=== PATIENT | male | born 1975 | race Caucasian/White ===

== ENCOUNTER 2019-09-18 12:25 | Emergency (ER) | payer OTHER ==
[2019-09-18 12:55] VITALS: BP 130/90; PULSE 96; TEMP 98.8; BMI 27.3
--- NOTE | 2019-09-18 13:14 | PDOC ---
History of Present Illness - General Chief Complaint: Syncope/Near Syncope Stated Complaint: SHORTNESS OF BREATH Time Seen by Provider: 09/18/19 13:13 History Source: Patient - History of Present Illness Initial Comments: 09/18/19 13:33 43M w/hx HTN p/w one hour of upper back pain. He reports wiping a counter and mopping the floors at home when he began to have pain in his mid upper back. He reports kneeling to the floor during the episode due to the pain. He denies any lightheadedness, vertigo, weakness, shortness of breath, chest pain, confusion. He reports taking acetaminophen otc before presenting to the ED which has alleviated his pain. He reports the current pain is 2/10, no radiation, non- exertional, described as an ache. He has not had any prior similar episodes. Past History - Past Medical History Allergies/Adverse Reactions: Allergies Allergy/AdvReac Type Severity Reaction Status Date / Time No Known Allergies Allergy Verified 09/18/19 12:45 - Psycho Social/Smoking Cessation Hx Smoking History: Never smoked Have you smoked in the past 12 months: No Hx Alcohol Use: Yes Drug/Substance Use Hx: No Review of Systems - Review of Systems Able to Perform ROS?: Yes Comments:: 09/18/19 13:53 GENERAL/CONSTITUTIONAL: No fever or chills. No weakness. HEAD, EYES, EARS, NOSE AND THROAT: No change in vision. No ear pain or discharge. No sore throat. CARDIOVASCULAR: No chest pain or shortness of breath RESPIRATORY: No cough, wheezing, or hemoptysis. GASTROINTESTINAL: No nausea, vomiting, diarrhea or constipation. GENITOURINARY: No dysuria, frequency, or change in urination. MUSCULOSKELETAL: No joint or muscle swelling or pain. No neck or back pain. SKIN: No rash NEUROLOGIC: No headache, vertigo, loss of consciousness, or change in strength/sensation. ENDOCRINE: No increased thirst. No abnormal weight change HEMATOLOGIC/LYMPHATIC: No anemia, easy bleeding, or history of blood clots. ALLERGIC/IMMUNOLOGIC: No hives or skin allergy. *Physical Exam - Vital Signs Last Vital Signs Temp Pulse Resp BP Pulse Ox 98.8 F 96 H 20 130/90 100 09/18/19 12:46 09/18/19 12:46 09/18/19 12:46 09/18/19 12:46 09/18/19 12:46 - Physical Exam 09/18/19 13:53 GENERAL: Awake, alert, and fully oriented, in no acute distress HEAD: No signs of trauma, normocephalic, atraumatic EYES: PERRLA, EOMI, sclera anicteric, conjunctiva clear ENT: Auricles normal inspection, hearing grossly normal, nares patent, oropharynx clear without exudates. Moist mucosa NECK: Normal ROM, supple, no lymphadenopathy, JVD, or masses LUNGS: No distress, speaks full sentences, clear to auscultation bilaterally HEART: Regular rate and rhythm, normal S1 and S2, no murmurs, rubs or gallops, peripheral pulses normal and equal bilaterally. ABDOMEN: Soft, nontender, normoactive bowel sounds. No guarding, no rebound. No masses EXTREMITIES : Normal inspection, Normal range of motion, no edema. No clubbing or cyanosis NEUROLOGICAL: Cranial nerves II through XII grossly intact. Normal speech, normal gait, no focal sensorimotor deficits SKIN: Warm, Dry, normal turgor, no rashes or lesions noted ED Treatment Course - LABORATORY CBC & Chemistry Diagram: 09/18/19 13:50 09/18/19 13:50 Medical Decision Making - Medical Decision Making 09/18/19 13:55 43M w/hx HTN p/w acute onset upper back pain, improving s/p acetaminophen. Ddx includes muscle spasm, electrolyte derangement, ACS. Plan: CBC CMP Troponin CXR EKG Dispo: Discharge 09/18/19 14:38 CBC - wnl CMP - wnl Troponin - pending EKG - NSR, no axis deviation, RRR, QRS 92, QTc 430 CXR - no mediastinal enlargement, no consolidations, fractures, or other acute processes visualized 09/18/19 15:03 Troponin - negative Plan for discharge with close PCP follow up. Discharge - Discharge Information Problems reviewed: Yes Clinical Impression/Diagnosis: Muscle spasm Condition: Stable Disposition: HOME - Admission No - Follow up/Referral Referrals: ON STAFF,NOT [Primary Care Provider] - - Patient Discharge Instructions Patient Printed Discharge Instructions: DI for Muscle Spasm Additional Instructions: Usted fue evaluado en la phil de urgencias por dolor de espalda. Sada niveles de saul estaban normales, y sada jaida X estaban normales tambien. Por favor ve a ferro doctor de cabezera lo mas pronto posible, en 5-7 lo. Regresa a la phil de urgencias si empiezas a tener dolor de pecho, debilidad, dificultad en respirar. Es posible que ferro dolor es muscular - por favor phylicia acetaminopheno o ibuprofen para controlar a sada sintomas. Print Language: ENGLISH - Post Discharge Activity
[2019-09-18] MEDS ORDERED: ACETAMINOPHEN 325 MG TABLET (FP) PO ONE (13:29)
[2019-09-18] MEDS ORDERED: LACTATED RINGERS SOLUTION 1000 ML INFUS.BAG IV ONE (13:34)
[2019-09-18] MEDS ORDERED: ACETAMINOPHEN 325 MG TABLET (FP) ONE (13:48)
--- NOTE | 2019-09-18 13:54 | PDOC ---
Attending Attestation - Resident Resident Name: YaelWin - ED Attending Attestation I have performed the following: I have examined & evaluated the patient, The case was reviewed & discussed with the resident, I agree w/resident's findings & plan, Exceptions are as noted - HPI HPI: 09/18/19 13:48 43yo male with hx of htn with midback pain while cleaning this am. Pt states he was wiping counters and moping the floor when he developed acute back pain, took tylenol and pain has resolved. No midline ttp. No falls. States the pain made him kneel to 1 knee, no cp. No radiation. No weakness. No paresthesias/weakness to arms/legs. Pt denies nix. No other complaints. - Physicial Exam PE: 09/18/19 13:54 Gen: aaox3, nad heart: +s1s2 reg lungs: cta b.l back: no c/t/l spine ttp, no stepoffs or deformities, no paraspinal ttp ext: no c/c/e, muscle strength 5/5 UE and LE, ambulates with a steady gait - Medical Decision Making 09/18/19 13:55 a/p: 43yo male with back pain which has since resolved -pain while cleaning -no cp -will send labs, ekg, cxr -currently pain free -will monitor and reassess 09/18/19 15:02 labs reviewed, trop neg cxr clear 09/18/19 15:03 pt stable for dc to home Heart Score/ECG Review - ECG Intrepretation Comment:: 09/18/19 13:56 sinus at 87, nl axis, nl interval, no acute st/t wave findings
[2019-09-18 14:16] LABS: BASO % 0.6 % (0-2.0); HEMATOCRIT 44.6 % (35.4-49); HEMOGLOBIN 14.8 GM/dL (11.7-16.9); LYMPH % 44.6 % (8-40); MCH 28.4 pg (25.7-33.7); MCHC 33.3 g/dl (32.0-35.9); MEAN CELL VOLUME 85.4 fl (80-96); MONO % 6.2 % (3.8-10.2); NEUT % 45.6 % (42.8-82.8); PLATELET COUNT 293 K/MM3 (134-434); RBC 5.22 M/mm3 (4.00-5.60); RDW 14.7 % (11.9-15.9); WHITE BLOOD COUNT 8.2 K/mm3 (4.0-10.0)
[2019-09-18 14:35] LABS: ALBUMIN 4.1 g/dl (3.4-5.0); BILIRUBIN,TOTAL 0.4 mg/dL (0.2-1); BLOOD UREA NITROGEN 10.9 mg/dL (7-18); CALCIUM 8.9 mg/dL (8.5-10.1); POTASSIUM 4.3 mmol/L (3.5-5.1); TOT PROT 8.2 g/dl (6.4-8.2)
--- NOTE | 2019-09-19 09:52 | EKG ---
Test Reason : Blood Pressure : / mmHG Vent. Rate : 087 BPM Atrial Rate : 087 BPM P-R Int : 168 ms QRS Dur : 092 ms QT Int : 358 ms P-R-T Axes : 079 005 079 degrees QTc Int : 430 ms NORMAL SINUS RHYTHM NONSPECIFIC T WAVE ABNORMALITY ABNORMAL ECG NO PREVIOUS ECGS AVAILABLE Confirmed by Delio Morales MD ([id number]) on 09/19/2019 9:51:58 AM Referred By: Confirmed By:Delio Morales MD
== END 2019-09-18 15:00 | disposition home or self-care (01) ==
LOC: JER 12:25
DX: M62.830 Muscle spasm of back (principal); I10 Essential (primary) hypertension
CPT/HCPCS: 36415; 71046-TC-FY; 80053; 84484; 85025; 93005; 93010; 99285-25

== ENCOUNTER 2021-04-26 12:20 | Emergency (ER) | payer OTHER ==
[2021-04-26 12:40] VITALS: BP 139/82; PULSE 82; TEMP 98.1; BMI 25.8
[2021-04-26] MEDS ORDERED: IBUPROFEN 600 MG TABLET (FP) PO ONE ×2 (13:38→13:51)
[2021-04-26] MEDS ORDERED: LIDOCAINE 5% TOPICAL PATCH TP ONE (13:38)
[2021-04-26] MEDS ORDERED: LIDOCAINE 5% TOPICAL PATCH ONE (13:51)
[2021-04-26] MEDS ORDERED: LIDOCAINE PATCH REMOVAL MC SCH (22:00)
== END 2021-04-26 14:10 | disposition home or self-care (01) ==
LOC: FER 12:20
DX: M54.50 Low back pain, unspecified (principal)
CPT/HCPCS: 99283-25

== ENCOUNTER 2024-07-22 23:18 | Day surgery (SDC) | payer OTHER ==
[2024-07-23 00:31] LABS: BASO % 0.3 % (0-2.0); EOS % 0.3 % (0-4.5); HEMATOCRIT 44.1 % (35.4-49); HEMOGLOBIN 14.6 GM/dL (11.7-16.9); LYMPH % 15.8 % (8-40); MCH 27.7 pg (25.7-33.7); MCHC 33.2 g/dl (32.0-35.9); MEAN CELL VOLUME 83.5 fl (80-96); MEAN PLT VOLUME 8.7 fl (7.5-11.1); MONO % 5.5 % (3.8-10.2); NEUT % 78.1 % (42.8-82.8); PLATELET COUNT 277 10^3/uL (134-434); RBC 5.28 M/mm3 (4.00-5.60); RDW 14.7 % (11.9-15.9); WHITE BLOOD COUNT 16.1 K/mm3 (4.0-10.0)
[2024-07-23 00:49] LABS: POTASSIUM 4.3 mmol/L (3.5-5.1)
[2024-07-23 00:52] LABS: ALBUMIN 4.3 g/dl (3.4-5.0); BLOOD UREA NITROGEN 17.7 mg/dL (7-18); CALCIUM 9.3 mg/dL (8.5-10.1)
[2024-07-23 00:55] LABS: CREATININE 1.3 mg/dL (0.55-1.3)
[2024-07-23 00:57] LABS: BILIRUBIN,TOTAL 0.6 mg/dL (0.2-1); TOT PROT 8.3 g/dl (6.4-8.2)
[2024-07-23] MEDS ORDERED: FAMOTIDINE 20 MG/50 ML IVPB 20 MG/50 ML MG IVPB ONE (02:25)
[2024-07-23] MEDS ORDERED: MAG HYDROX/AL HYDROX/SIMETH 30 ML UNIT-DOSE CUP ONE (02:25)
[2024-07-23] MEDS ORDERED: ACETAMINOPHEN INJECTION 100 ML ONE (02:25)
[2024-07-23] MEDS: FAMOTIDINE 20 MG/50 ML IVPB 20 MG/50 ML MG IVPB ONE (02:30)
[2024-07-23] MEDS: MAG HYDROX/AL HYDROX/SIMETH -MYLANTA- ORAL SUSPENSION PO ONE (02:30)
[2024-07-23] MEDS: ACETAMINOPHEN 1000 MG/100 ML BAG IVPB ONE (02:40)
[2024-07-23] MEDS: CEFTRIAXONE 1,000 MG in DEXTROSE 5%-WATER - 50 ML IVPB ONE (03:19)
[2024-07-23 05:12] LABS: BASO % 0.4 % (0-2.0); HEMATOCRIT 44.9 % (35.4-49); HEMOGLOBIN 14.6 GM/dL (11.7-16.9); LYMPH % 17.8 % (8-40); MCH 27.3 pg (25.7-33.7); MCHC 32.5 g/dl (32.0-35.9); MEAN PLT VOLUME 8.5 fl (7.5-11.1); MONO % 6.5 % (3.8-10.2); NEUT % 75.3 % (42.8-82.8); PLATELET COUNT 272 10^3/uL (134-434); RBC 5.35 M/mm3 (4.00-5.60); RDW 14.3 % (11.9-15.9); WHITE BLOOD COUNT 15.6 K/mm3 (4.0-10.0)
[2024-07-23] MEDS ORDERED: ACETAMINOPHEN 1000 MG/100 ML BAG IVPB PRN ×2 (05:24→12:43)
[2024-07-23] MEDS ORDERED: CEFTRIAXONE 1 G/50 ML PREMIX 50 ML IVPB ONE (05:28)
[2024-07-23] MEDS: CEFTRIAXONE 1 G/50 ML PREMIX 50 ML IVPB SCH (05:38)
[2024-07-23 05:51] LABS: URINE APPEARANCE CLEAR; URINE COLOR YELLOW; URINE GLUCOSE (UA) NEGATIVE (NEGATIVE)
[2024-07-23 05:52] LABS: PH,URINE 5.5 (5.0-8.0); URINE BILIRUBIN NEGATIVE (NEGATIVE); URINE KETONE NEGATIVE (NEGATIVE); URINE LEUK ESTERASE NEGATIVE (NEGATIVE); URINE NITRITE NEGATIVE (NEGATIVE); URINE PROTEIN NEGATIVE (NEGATIVE); URINE UROBILINOGEN 0.2 mg/dL (0.2-1.0)
[2024-07-23] MEDS: SODIUM CHLORIDE 1,000 ML IV SCH (05:53)
[2024-07-23 06:06] LABS: POTASSIUM 4.2 mmol/L (3.5-5.1)
[2024-07-23 06:08] LABS: ALBUMIN 4.1 g/dl (3.4-5.0); CALCIUM 9.4 mg/dL (8.5-10.1)
[2024-07-23 06:09] LABS: BLOOD UREA NITROGEN 15.9 mg/dL (7-18)
[2024-07-23 06:12] LABS: CREATININE 1.2 mg/dL (0.55-1.3); PHOSPHOROUS 2.4 mg/dL (2.5-4.9)
[2024-07-23 06:13] LABS: BILIRUBIN,TOTAL 0.6 mg/dL (0.2-1); TOT PROT 8.2 g/dl (6.4-8.2)
[2024-07-23 08:31] LABS: INR 1.04 (0.83-1.09); PROTHROMBIN TIME (PATIENT) 11.7 SEC (9.7-13.0)
[2024-07-23] MEDS ORDERED: BUPIVACAINE HCL/PF 0.5% (5MG/ML) 10 ML VIAL ONE (10:39)
[2024-07-23] MEDS ORDERED: PROPOFOL 20 ML ONE (10:55)
[2024-07-23] MEDS ORDERED: LIDOCAINE HCL/PF 2% SDV 5ML VIAL ONE (10:55)
[2024-07-23] MEDS ORDERED: ROCURONIUM BROMIDE 50 MG/5 ML SYRINGE ONE (10:55)
[2024-07-23] MEDS ORDERED: oxyCODONE HCL 5 MG TABLET PO PRN ×2 (11:12→12:43)
[2024-07-23] MEDS ORDERED: ONDANSETRON 4 MG/2 ML VIAL IVPUSH PRN ×2 (11:12→12:43)
[2024-07-23] MEDS ORDERED: MIDAZOLAM HCL 2 MG/2 ML SINGLE DOSE VIAL ONE (11:43)
[2024-07-23] MEDS: BUPIVACAINE HCL/PF 0.5% (5 MG/ML) 30 ML VIAL IJ ONE ×3 (12:00→12:03)
[2024-07-23] MEDS ORDERED: SUGAMMADEX SODIUM 200 MG/2 ML VIAL ONE ×2 (12:16→12:23)
[2024-07-23] MEDS ORDERED: SODIUM CHLORIDE 1,000 ML IV SCH (12:43)
[2024-07-23 18:52] VITALS: BMI 27.9
[2024-07-24 09:49] LABS: HEMATOCRIT 39.9 % (35.4-49); HEMOGLOBIN 13.2 GM/dL (11.7-16.9); MCH 27.6 pg (25.7-33.7); MEAN CELL VOLUME 83.7 fl (80-96); MEAN PLT VOLUME 9.1 fl (7.5-11.1); PLATELET COUNT 258 10^3/uL (134-434); RBC 4.77 M/mm3 (4.00-5.60); RDW 14.7 % (11.9-15.9); WHITE BLOOD COUNT 13.6 K/mm3 (4.0-10.0)
[2024-07-24] MEDS: amLODIPine BESYLATE 5 MG TABLET (FP) PO SCH (09:56)
[2024-07-24] MEDS: CEFTRIAXONE 1 G/50 ML PREMIX 50 ML IVPB SCH (09:59)
[2024-07-24 11:32] VITALS: BP 126/74; PULSE 88; RESP 20; TEMP 98.2
== END 2024-07-24 13:18 | disposition home or self-care (01) ==
LOC: JER 23:18 → JERBED 07-23 03:31 → UNDOADMIN 07-23 03:31 → SUATTDRO 07-23 14:52 → J8W 07-23 14:52 → JASUSAT 07-23 14:52 → J8W 07-23 14:52 → JERBED 07-23 14:52 → JASUSAT 07-24 13:18
PROVIDERS: ATTEND Internal Medicine
PROC: 3E033GC Introduction of Other Therapeutic Substance into Peripheral Vein, Percutaneous Approach (ICD-10-PCS; 2024-07-23)
PROC: 3E033NZ Introduction of Analgesics, Hypnotics, Sedatives into Peripheral Vein, Percutaneous Approach (ICD-10-PCS; principal; 2024-07-23 14:00)
DX: R10.13 Epigastric pain (principal)
CPT/HCPCS: 0241U-QW; 36415; 74177-TC; 76705-TC; 80053; 81003; 83690; 83735; 84100; 84484; 85025; 85027; 85610; 86850; 86900; 86901; 87040; 93005; 93010; 94760; 96365; 96375; 99285-25; J0131; Q9967